=== PATIENT | female | born 1960 | race Caucasian/White ===

== ENCOUNTER → 2019-03-22 | Outpatient (CLI) | payer BC ==
[2015-11-28 18:48] VITALS: BP 125/82
[~2019-03-22] MED LIST: FLONASE ALLERG9.9 ML NS; PREDNISONE20 M1 PO; SINGULAIR 110 MG/TAB PO; ZOLOFT 50MG50 MG PO
== END ==
LOC: MAMMO 08:22
DX: Z12.31 Encounter for screening mammogram for malignant neoplasm of breast (principal)

== ENCOUNTER → 2019-07-02 | Outpatient (CLI) | payer BC ==
[2015-11-28 18:48] VITALS: BP 125/82
== END ==
LOC: RAD 07:17
DX: M85.80 Other specified disorders of bone density and structure, unspecified site (principal); M18.12 Unilateral primary osteoarthritis of first carpometacarpal joint, left hand; W19.XXXA Unspecified fall, initial encounter

== ENCOUNTER → 2020-08-06 | Outpatient (CLI) | payer BC ==
[2015-11-28 18:48] VITALS: BP 125/82
== END ==
LOC: RAD 15:30
DX: K56.41 Fecal impaction (principal)

== ENCOUNTER → 2020-10-28 | Outpatient (CLI) | payer BC ==
[2015-11-28 18:48] VITALS: BP 125/82
== END ==
LOC: MAMMO 12:52
DX: Z12.31 Encounter for screening mammogram for malignant neoplasm of breast (principal)

== ENCOUNTER → 2021-02-09 | Day surgery (SDC) | payer BC ==
[2015-11-28 18:48] VITALS: BP 125/82
== END ==
LOC: MSO 08:25
DX: K21.9 Gastro-esophageal reflux disease without esophagitis (principal); J45.909 Unspecified asthma, uncomplicated; J32.9 Chronic sinusitis, unspecified; Z79.899 Other long term (current) drug therapy
CPT/HCPCS: 00731; J2704; J7120

== ENCOUNTER → 2021-07-06 | Outpatient (CLI) | payer BC | LOC: RAD 09:41 | DX: M25.532 Pain in left wrist (principal) ==

== ENCOUNTER → 2022-06-28 | Outpatient (CLI) | payer BC | LOC: RAD 16:43 | DX: M25.561 Pain in right knee (principal); W19.XXXA Unspecified fall, initial encounter ==

== ENCOUNTER → 2024-04-18 | Outpatient (CLI) | payer BC | LOC: RAD 08:05 | DX: Z12.31 Encounter for screening mammogram for malignant neoplasm of breast (principal) ==